=== PATIENT | female | born 1980 | race Caucasian/White ===

== ENCOUNTER 2024-06-22 09:05 | Outpatient (CLI) | payer MEDICAID, SELFPAY ==
--- NOTE | 2024-06-22 09:15 | CRLHL7_ITS ---
For Patients: As a result of the Century Cures Act, medical imaging exams and procedure reports are released immediately into your electronic medical record. You may view this report before your referring provider. If you have questions, please contact your health care provider. BILATERAL SCREENING MAMMOGRAM WITH COMPUTER-AIDED DETECTION AND TOMOSYNTHESIS, 06/22/2024 TECHNIQUE: CC and MLO views were obtained. These mammographic images have been obtained using full-field digital technique. These mammographic images were interpreted with the benefit of computer-aided detection. Breast Tomosynthesis was used in this interpretation. COMPARISON FILM: None, baseline. FINDINGS: The breasts are heterogeneously dense, which may obscure small masses IMPRESSION: There is no radiographic evidence for malignancy. ASSESSMENT: BI-RADS Category 2: Benign RECOMMENDATION: Routine screening mammogram in 1 year. A lay language report of this examination will be provided to the patient. Addi Hsu M.D. Diagnostic Radiologist [email or web address] TANNER/gilda: Transcribed: 8:52 am DW/Dictated by: Addi Hsu MD @ 06/22/2024 1:01:00 PM (Electronically Signed)
== END 2024-06-22 09:06 | disposition home or self-care (01) ==
LOC: MAMMO 09:06
PROVIDERS: Visit Provider Obstetrics & Gynecology
DX: Z12.31 Encounter for screening mammogram for malignant neoplasm of breast (principal); R92.333 Mammographic heterogeneous density, bilateral breasts
CPT/HCPCS: 77063; 77067

== ENCOUNTER 2024-08-09 12:00 | Outpatient (RCR) | payer MEDICAID, SELFPAY ==
--- NOTE | 2024-06-21 13:32 | PT.OPEX ---
PT [facility] PT [facility] Outpatient Eval Start: 06/21/24 11:21 Freq: Status: Active Protocol: Document 06/21/24 11:22 MRS (Rec: 06/21/24 13:19 MRS No Response) E-signed By Fanta Bishop DPT Physical Therapy Outpatient Evaluation Insurance Information Insurance Name [employer] Insurance Information/Comments [employer] Medicaid Plan; need authorization Medical Diagnosis Right knee pain Imaging Report Information XR R knee= No acute osseous injuries or abnormalities are noted. Referring MD Alanis Tam, KEY WORKER Subjective Subjective Pt is a 43 y/o female who started having pain ~1 year ago after hyperextending while reaching into car to grab her purse. Pt saw chiropractor at that time who put her knee into a contraption which helped and had pt some relief. However, pt then fell several weeks later and was afraid that she had a fracture. In February, pt had an episode numbness and tingling in the front of lower leg. No numbness since February. No fracture on XR yesterday. Pt reports having a constant ache and decreased ROM as well as inconsistent swelling on the inside of knee. Pt was exercising regularly using elliptical and has done HIIT programs which increased the knee pain. No stairs at home. Pt is planning on seeing Dr. 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 [place] access code:? 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 -Knee Flx:?137/137 -Knee Ext:?1/-1 ? Strength Strength LE:? LE Strength (R/L):? -Knee Ext: R: 4/5, L: 5/5? -Knee Flex: R: 5/5, L: 5/5? -Hip Abd: R: 4/5, L: 11/14? -Hip Add: R: 4-/5, L: 4+/5? -Hip Ext: R: 10/15, L: 11/14? -Hip Flx: R: 11/14, L: 11/14? ? Ankle Strength (R/L):? -DF: R: 11/14, L: 11/14? -PF (uni heel raise): R: X10 reps, L: X10 reps? Swelling 5 cm above joint line: R= 39. 75 cm; L= 43 cm joint line: R= 38.5 cm; L= 37. 25 cm 5 cm below joint line: R= 33. 25 cm; L=33 cm Palpation tightness and swelling in R medial knee musculature at joint line, tightness in R ITB vs L ITB Balance & Gait Lateral foot contact on R Posture lateral facing R patella compared to L Sensation/Reflexes intact Other/Pertinent Objective Knee Ligamentous:? -Varus 0:?negative -Varus 30:?negative -Valgus 0:?negative -Valgus 30:?negative -Anterior Drawer:?negative -Lachmans:?negative ? Knee Meniscus:? -Apley?s:?positive for pain on R -Joint Line Palpation:? positive for pain on R medial knee -Thessaly's: positive for R knee pain Muscle Length:? -Keith Test: Rectus Fem/Psoas /TFL: positive on R; greater range on L Patella Grind/Compression: positive on R for AP compression of patella and proximal distal compression with quad contraction suggesting patellofemoral dysfunction Assessment Assessment/Impression Pt is 43-year-old female presents with signs and symptoms consistent with right knee pain. Upon evaluation, pt is found to have improved right hip and knee strength, decreased right quad flexibility compared to the left, patellofemoral dysfunction with laterally positioned right patella compared to left, and positive meniscus involvement with special tests. Contributing factors include but are not limited to impaired right hip and knee muscle weakness, swelling in right knee joint, muscle tightness on right quad and TFL. Pt would benefit from skilled PT interventions to facilitate return to PLOF and improve functional strength and mobility of right lower extremity while decreasing pain.? ? Primary Functional Limitations pain, weakness, decreased ROM of right quad, patellofemoral dysfunction, swelling Plan of Care Rehabilitation Potential Excellent Physical Therapy Goals Within 2 weeks: 1.) Pt will report pain decreasing to 3/10 at worst. 2.) Pt will increase R hip strength to 4+/5 3.) Pt will increase R knee extension strength to 4+/5 4.) Pt will be competent and independne with HEP to promote continued strengthening. Within 4-6 weeks: 1.) Pt will report pain at 1/ 10 at worst. 2.) Pt will have a decrease in R knee joint line swelling by 1 cm to promote improved patella and knee motion. 3.) Pt will demonstrate 5/5 strength MMT in glut max & glut med to improve dynamic control with SLS activities and gait.? 4.) Pt will be able to return to exercising on elliptical without increase in right knee pain. Coordination/Communication With Referral Source Treatment Plan/Direct Interventions Gait Training,Ice/Cold/ Vasopneumatic,Manual Therapy, Therapeutic Activities, Therapeutic Exercises Frequency/Duration 2x/week for 4-6 weeks depending on pt progress Patient Will Be Discharged From Therapy Completion of LTG(s),Skills Plateau,Independent w/HEP, Independently Progressing Evaluation Billing Untimed Code Treatment Minutes 20 PT Eval No Charge No Complexity Low Certification Information Provider Signature Required Communication Only-No Signature Required
== END 2024-08-09 14:40 | disposition home or self-care (01) ==
PROVIDERS: PCP Registered Nurse; Visit Provider Registered Nurse
DX: M25.561 Pain in right knee (principal); M62.81 Muscle weakness (generalized); Z51.89 Encounter for other specified aftercare
CPT/HCPCS: 97110; 97112; 97161; 97530

== ENCOUNTER 2025-05-29 13:37 | Outpatient (CLI) | payer OTHER, SELFPAY ==
[2025-06-01 05:12] LABS: HPV Source Cervical
[2025-06-01 12:36] LABS: Pap Test Digital Imaging Done
== END 2025-05-29 13:38 | disposition home or self-care (01) ==
PROVIDERS: Visit Provider Obstetrics & Gynecology
DX: Z12.4 Encounter for screening for malignant neoplasm of cervix (principal); Z00.00 Encounter for general adult medical examination without abnormal findings
CPT/HCPCS: 87624; 87625; 88141; 88142; 88175

== ENCOUNTER 2025-06-05 08:55 | Outpatient (CLI) | payer OTHER, SELFPAY | END 2025-06-05 08:56 | disposition home or self-care (01) | LOC: NFLDREF 06-08 17:36 | PROVIDERS: Visit Provider Obstetrics & Gynecology | DX: Z00.00 Encounter for general adult medical examination without abnormal findings (principal); K59.09 Other constipation | CPT/HCPCS: 80061; 84443 ==

== ENCOUNTER 2025-06-19 11:54 | Outpatient (CLI) | payer BC, SELFPAY ==
--- NOTE | 2025-06-19 13:22 | P.ANES_ITS ---
Anesthesia Charges Start Date/Time Anesthesia Start Date: 06/19/25 Anesthesia Start Time: 12:36 Stop Date/Time Anesthesia Stop Date: 06/19/25 Anesthesia Stop Time: 13:18 Coding CPT Codes CPT Codes: RAJAT LWR INTST NDSC NOS - 25187 ([id number]) P2 - PATIENT W/MILD SYST DISEASE, QK - RESEARCH PROGRAM INTERNSHIP 2-4 CNCRNT ANES PROC, QX - ALCOHOL STILL OPERATOR SVC W/ MD MED DIRECTION
--- NOTE | 2025-06-19 13:22 | W.ANESCHARGE ---
Anesthesia Charges Start Date/Time Anesthesia Start Date: 06/19/25 Anesthesia Start Time: 12:36 Stop Date/Time Anesthesia Stop Date: 06/19/25 Anesthesia Stop Time: 13:18 Coding CPT Codes CPT Codes: RAJAT LWR INTST NDSC NOS - [id number] ([id number]) P2 - PATIENT W/MILD SYST DISEASE, QK - INSURANCE SPECIAL AGENT 2-4 CNCRNT ANES PROC, QX - SULPHATE TESTER SVC W/ MD MED DIRECTION
== END 2025-06-19 11:55 | disposition home or self-care (01) ==
LOC: OP CLINIC 11:55
PROVIDERS: Visit Provider Internal Medicine
DX: Z12.11 Encounter for screening for malignant neoplasm of colon (principal); D12.3 Benign neoplasm of transverse colon; D12.5 Benign neoplasm of sigmoid colon; D12.8 Benign neoplasm of rectum
CPT/HCPCS: 00811; 00812; 45380; 45385; J2704